=== PATIENT | male | born 1995 | race Caucasian/White ===

== ENCOUNTER 2018-11-21 21:41 | Emergency (ER) | payer MEDICAID ==
[~2018-11-21] VITALS: Ht 175.3 cm; Wt 67.0 kg
[2018-11-21 21:50] VITALS: BP 119/74
[2018-11-21] MEDS ORDERED: ACETAMINOPHEN 500 MG TABLET ONE (23:25)
[2018-11-21] MEDS ORDERED: ACETAMINOPHEN 500 MG TABLET PO ONE (23:30)
== END 2018-11-22 00:12 | disposition home or self-care (01) ==
LOC: ED 11-22 00:06
DX: S76.912A Strain of unspecified muscles, fascia and tendons at thigh level, left thigh, initial encounter (principal); X58.XXXA Exposure to other specified factors, initial encounter; Y93.89 Activity, other specified; Y92.89 Other specified places as the place of occurrence of the external cause; Y99.8 Other external cause status
CPT/HCPCS: 99282